=== PATIENT | male | born 1990 | race Caucasian/White ===

== ENCOUNTER 2017-10-04 17:13 | Emergency (ER) | payer SELFPAY, OTHER | END 2017-10-04 20:30 | disposition home or self-care (01) | LOC: FTE 17:13 | DX: S01.111A Laceration without foreign body of right eyelid and periocular area, initial encounter (principal); W50.1XXA Accidental kick by another person, initial encounter; Y92.9 Unspecified place or not applicable | CPT/HCPCS: 99283 ==